=== PATIENT | male | born 1930 | race Caucasian/White ===

== ENCOUNTER 2017-09-08 12:45 | Inpatient (IN) ==
[2017-09-08 13:19] LABS: Basophils % 0.3 %; Eosinophils # 0.2 K/mcL (0.0-0.6); Hemoglobin 13.1 g/dL (12.9-16.9); Immature Granulocytes % 0.6 % (0-4); Lymphocytes # 1.1 K/mcL (0.6-4.6); Lymphocytes % 10.1 %; Mean Corpuscular Hemoglobin 28.6 pg (28.0-33.3); Mean Corpuscular Volume 89.5 fL (83.0-100.0); Mean Platelet Volume 9.6 fL (9.4-12.4); Monocytes # 0.5 K/mcL (0.0-1.3); Monocytes % 4.7 %; Neutrophils # 8.6 K/mcL (1.6-8.9); Platelet Count 287 K/mcL (140-400); Red Blood Count 4.58 M/mcL (4.19-5.50); Red Cell Distribution Width 14.7 % (11.5-14.5); Segmented Neutrophils % 82.3 %
[2017-09-08 13:35] LABS: Prothrombin Time 11.2 Seconds (9.4-12.1)
--- NOTE | 2017-09-08 13:39 | Emergency Department Note ---
Disposition Clinical Impression: Syncope Qualifiers: Syncope type: unspecified Qualified Code(s): R55 - Syncope and collapse Chest pain Qualifiers: Chest pain type: unspecified Qualified Code(s): R07.9 - Chest pain, unspecified Disposition: Admitted As Inpatient Time of Disposition: 14:52 General Adult HPI - General Chief complaint: ED Chest Pain Stated complaint: CHEST PAIN/SYNCOPE Time Seen by Provider: 09/08/17 12:53 Source: patient Limitations: no limitations Nursing Notes Reviewed: Yes Vital Signs Reviewed: Yes - History of Present Illness HPI Narrative: Patient was burning trash today whenever he got short of breath. He is insistent he was not in the smoke area. States he went to sit down and start taking deep breaths is is generally gets rid of his chest pain. He states he has chest pain associated with aortic stenosis frequently. He states the pain was different however. States that he had a syncopal over he slumped over while sitting. He denies any head pain or trauma. He states this chest pain was gone after he woke up. Pain Scale: 5 - Related Data Home Medications Medication Instructions Recorded Confirmed Amlodipine Besylate [Amlodipine 5 mg PO QPM 09/08/17 09/08/17 Besylate] Aspirin 81 mg PO DAILY 09/08/17 09/08/17 Calcium Carbonate [Calcium] 500 mg PO DAILY 09/08/17 09/08/17 Cholecalciferol (Vitamin D3) 1,000 unit PO DAILY 09/08/17 09/08/17 [Vitamin D] Dutasteride [Dutasteride] 0.5 mg PO DAILY 09/08/17 09/08/17 Etanercept [Enbrel] 50 mg IJ Q10D 09/08/17 09/08/17 Furosemide [Lasix] 20 mg PO DAILY 09/08/17 09/08/17 Ibuprofen [Advil] 200 mg PO Q6H PRN 09/08/17 09/08/17 Lactobacillus Acidophilus 1 mg PO DAILY 09/08/17 09/08/17 [Acidophilus Probiotic] Mv-Mn/FA/Vit K/Lycop/Lut/Coq10 1 tab PO DAILY 09/08/17 09/08/17 [Daily Multivitamin Capsule] Potassium Chloride [Klor-Con 10 meq PO DAILY 09/08/17 09/08/17 Sprinkle] Valsartan/Hydrochlorothiazide 1 tab PO DAILY 09/08/17 09/08/17 [Diovan Hct 160-25 mg Tablet] Allergies Allergy/AdvReac Type Severity Reaction Status Date / Time nitroglycerin Allergy PASSES OUT Verified 09/08/17 14:26 All systems ED: reviewed and negative except as stated. Constitutional: Denies: fever, chills ENT ED: Denies: congestion Cardiovascular: Reports: chest pain (Prior to syncope. Not at this time), syncope (After the chest pain.). Denies: palpitations Respiratory: Reports: dyspnea (Not at this time.). Denies: cough Gastrointestinal: Denies: abdominal pain, nausea Genitourinary: Denies: urgency, dysuria, frequency Musculoskeletal: Denies: back pain, neck pain Integumentary: Denies: rash Neurological: Denies: headache, weakness Past Medical History - Past Medical History Medical history: Reports: other Psychiatric history: Reports: no psych history - Social History Smoking Status: Never smoker Smokeless Tobacco Status: No Physical Exam - General Limitations: no limitations General appearance: alert, in no apparent distress - Head Head exam: atraumatic, normocephalic, normal inspection - Eye Eye exam: Present: normal appearance, PERRL, EOMI - ENT ENT exam: normal exam, normal oropharynx, mucous membranes moist - Neck Neck exam: Present: normal inspection, full ROM, trachea midline - Chest Chest inspection: Present: normal inspection, symmetric chest wall rise - Respiratory Respiratory exam: Present: normal lung sounds bilaterally. Absent: respiratory distress, accessory muscle use - Cardiovascular Cardiovascular exam: Present: regular rate, normal rhythm, normal heart sounds - Abdominal Exam Abdominal exam: Present: soft, Non-Tender. Absent: organomegaly - Extremities Exam Extremities exam: Present: normal inspection, full ROM, normal capillary refill. Absent: tenderness, pedal edema - Back Exam Back exam: Present: normal inspection, other (No midline cervical tenderness) - Neurological Exam Neurological exam: Present: alert, oriented X3, CN II-XII intact, other ( Mentating appropriately.) - Psychiatric Psychiatric exam: Present: normal affect, normal mood - Skin Skin exam: Present: warm, dry, intact, normal color. Absent: rash Course Course Narrative: Male patient presenting to the emergency department with a complaint of syncope earlier today. He was burning some trash outside when he started getting short of breath. States that he sat down. Generally gets chest pain and is able to deep breathe to make it go away. He reports that this is due to his aortic stenosis. States it with deep breathing this did not help with the pain. States that he sat down on a bench and when he woke up he was still sitting on the bench. No history of syncope previously. Patient states he did not strike his head. He denies any neck pain. I do not appreciate any trauma to his head. His pupils are equal and reactive to light. He is neurologically intact. He denies any chest pain at this time. He denies any shortness of breath. He is mentating appropriately. Patient's EKG showed no signs of acute ischemia. Patient had a negative troponin. We also got a CT of patient's head which showed some mild atrophy but no bleeding. Patient's chest pain and then syncope we will admit to the hospital for further cardiac workup. Patient reports no history of VT previously. - Consultations Consultation #1: Pt accepeted by Dr Jalloh in stable condition. Time: 14:45 Vital Signs Temperature 97.9 F 09/08/17 12:56 Pulse Rate 88 09/08/17 12:56 Respiratory Rate 16 09/08/17 12:56 Blood Pressure 174/77 09/08/17 12:56 O2 Sat by Pulse Oximetry 97 09/08/17 12:56 Temperature 97.9 F 09/08/17 12:56 Pulse Rate 81 09/08/17 14:49 Respiratory Rate 18 09/08/17 14:49 Blood Pressure 150/77 09/08/17 14:49 O2 Sat by Pulse Oximetry 96 09/08/17 14:49 Oxygen Delivery Oxygen Delivery Room Air Medical Decision Making - Medical Records Medical records reviewed: Yes I reviewed the patient's medical records. - Lab Data Lab results reviewed: Yes I reviewed the patient's lab results. Result diagrams: 09/08/17 13:08 09/08/17 13:08 Lab Results 09/08/17 09/08/17 09/08/17 Range/Units 13:08 13:08 13:08 WBC 10.4 (4.3-11.1) K/mcL RBC 4.58 (4.19-5.50) M/mcL Hgb 13.1 (12.9-16.9) g/dL Hct 41.0 (37.5-50.1) % MCV 89.5 (83.0-100.0) fL MCH 28.6 (28.0-33.3) pg MCHC 32.0 (31.6-35.5) g/dL RDW 14.7 H (11.5-14.5) % Plt Count 287 (140-400) K/mcL MPV 9.6 (9.4-12.4) fL Immature Gran % 0.6 (0-4) % Seg Neutrophils % 82.3 % Lymphocytes % 10.1 % Monocytes % 4.7 % Eosinophils % 2.0 % Basophils % 0.3 % Neutrophils # 8.6 (1.6-8.9) K/mcL Lymphocytes # 1.1 (0.6-4.6) K/mcL Monocytes # 0.5 (0.0-1.3) K/mcL Eosinophils # 0.2 (0.0-0.6) K/mcL Basophils # 0.0 (0.0-0.2) K/mcL PT 11.2 (9.4-12.1) Seconds INR 1.0 Sodium 137 (136-145) mEq/L Potassium 4.3 (3.5-5.1) mEq/L Chloride 100 (98-107) mEq/L Carbon Dioxide 30 H (23-29) mEq/L BUN 26 H (8-23) mg/dL Creatinine 0.93 (0.70-1.30) mg/dL Est GFR ( Amer) > 60 (> 60) Est GFR (Non-Af Amer) > 60 (> 60) BUN/Creatinine Ratio 28 H (6-26) Glucose 166 H (70-105) mg/dL Calculated Osmolality 293 (280-300) Calcium 8.9 (8.6-10.3) mg/dL Troponin I < 0.03 (< 0.04) ng/mL - Radiology Data Radiology results reviewed: Yes I reviewed the patient's radiology results. Chest X-Ray 09/08/17 12:54 IMPRESSION: Low lung volumes and pulmonary vascular congestion without overt edema. D/ / 09/08/2017 14:01:53 Raul Galindo MD / rehan Interpreting Provider: Raul Galindo MD Head CT 09/08/17 13:22 IMPRESSION: 1. No acute intracranial abnormality. 2. Mild age-appropriate diffuse atrophy with mild chronic small vessel ischemic changes. D/ / Josue Jordan MD / Josue Jordan MD Interpreting Provider: Josue Jordan MD - EKG Data EKG #1 EKG attestation: Yes I reviewed and interpreted this EKG. EKG results narrative: Normal sinus rhythm at a rate 82. PA interval is 158. QRS duration is 105. QT is 362. QTC is 401. No signs of acute ischemia. No previous to compare to.
[2017-09-08 13:42] LABS: BUN/Creatinine Ratio 28 (6-26); Blood Urea Nitrogen 26 mg/dL (8-23); Calcium 8.9 mg/dL (8.6-10.3); Carbon Dioxide 30 mEq/L (23-29); Chloride 100 mEq/L (98-107); Glucose 166 mg/dL (70-105); Osmolality,Calculated 293 (280-300); Potassium 4.3 mEq/L (3.5-5.1); Sodium 137 mEq/L (136-145); Troponin I < 0.03 ng/mL (< 0.04); eGFR For African Americans > 60 (> 60); eGFR For Non-African Americans > 60 (> 60)
--- NOTE | 2017-09-08 13:42 | Emergency Department Note ---
Disposition Clinical Impression: Syncope Qualifiers: Syncope type: unspecified Qualified Code(s): R55 - Syncope and collapse Disposition: Still a Patient Forms: ED Satisfaction Letter General Adult HPI - General Chief complaint: ED Chest Pain Stated complaint: CHEST PAIN/SYNCOPE Time Seen by Provider: 09/08/17 12:53 Source: patient Limitations: no limitations - History of Present Illness Pain Scale: 5 Past Medical History - Past Medical History Medical history: Reports: other Psychiatric history: Reports: no psych history - Social History Smoking Status: Never smoker Smokeless Tobacco Status: No Physical Exam - General Limitations: no limitations General appearance: alert, in no apparent distress Course - Reevaluation(s) Reevaluation #1: Attestation note I examined this patient and my medical decision-making was reviewed with the emergency medicine resident. I agree with the documented findings, disposition and treatment plan as described except to the extent set forth below. Patient seen with emergency medicine resident Dr. Kathleen Tinoco, Please see a copy of his note for details of the H&P, ED evaluation, management and disposition. I have independently evaluated the patient and confirmed appropriate portions of the history and physical exam. Briefly: 86-year-old male comes in with a history of chest discomfort and syncope but was sitting position. No prior history of syncope. Patient is awake and alert neurologically nonfocal patient had an EKG noncontrast head CT troponin chest x-ray. Admission anticipated. Disposition pending Time: 13:38 Vital Signs Temperature 97.9 F 09/08/17 12:56 Pulse Rate 88 09/08/17 12:56 Respiratory Rate 16 09/08/17 12:56 Blood Pressure 174/77 09/08/17 12:56 O2 Sat by Pulse Oximetry 97 09/08/17 12:56 Temperature 97.9 F 09/08/17 12:56 Pulse Rate 88 09/08/17 12:56 Respiratory Rate 16 09/08/17 12:56 Blood Pressure 174/77 09/08/17 12:56 O2 Sat by Pulse Oximetry 97 09/08/17 12:56 Oxygen Delivery Oxygen Delivery Room Air Medical Decision Making - Lab Data Result diagrams: 09/08/17 13:08 Lab Results 09/08/17 09/08/17 Range/Units 13:08 13:08 WBC 10.4 (4.3-11.1) K/mcL RBC 4.58 (4.19-5.50) M/mcL Hgb 13.1 (12.9-16.9) g/dL Hct 41.0 (37.5-50.1) % MCV 89.5 (83.0-100.0) fL MCH 28.6 (28.0-33.3) pg MCHC 32.0 (31.6-35.5) g/dL RDW 14.7 H (11.5-14.5) % Plt Count 287 (140-400) K/mcL MPV 9.6 (9.4-12.4) fL Immature Gran % 0.6 (0-4) % Seg Neutrophils % 82.3 % Lymphocytes % 10.1 % Monocytes % 4.7 % Eosinophils % 2.0 % Basophils % 0.3 % Neutrophils # 8.6 (1.6-8.9) K/mcL Lymphocytes # 1.1 (0.6-4.6) K/mcL Monocytes # 0.5 (0.0-1.3) K/mcL Eosinophils # 0.2 (0.0-0.6) K/mcL Basophils # 0.0 (0.0-0.2) K/mcL PT 11.2 (9.4-12.1) Seconds INR 1.0
--- NOTE | 2017-09-08 17:20 | Electrocardiograph Report ---
[facility] Test Date: 2017-09-08 Pat Name: Hank Taylor Department: 103 Room: 3B31 Gender: M Candy Attendant: [facility] : 1930 Requested By: Gary Jacob Order Number: [id number] Reading MD: Sergio Deleon Measurements Intervals Anderson Rate: 82 P: 51 TN: 158 QRS: 32 QRSD: 105 T: 69 QT: 362 QTc: 401 Interpretive Statements SINUS RHYTHM POSSIBLE INFERIOR MYOCARDIAL INFARCTION [30 ms Q WAVE IN II/aVF], PROBABLY OLD Electronically Signed On 09-08-2017 17:19:14 EDT by Sergio Deleon
[2017-09-08] MEDS ORDERED: Ibuprofen 200 MG TABLET PO PRN (20:50)
[2017-09-08] MEDS ORDERED: Acetaminophen 325 MG TABLET PO PRN (20:51)
[2017-09-08] MEDS ORDERED: Naloxone 0.4 MG/ML INJ IVP PRN (20:51)
[2017-09-08] MEDS ORDERED: *HR* HYDROcodone/Acet 5/325 mg TABLET PO PRN (20:51)
[2017-09-08] MEDS ORDERED: Etanercept [Enbrel] 50 MG SQ SCH (21:00)
--- NOTE | 2017-09-08 21:00 | Internal Med History&Physical ---
Date of Encounter: 09/08/17 Time of Encounter: 18:17 Internal Medicine - H&P: HPI Chief complaint: "Pain in chest and passed out" Admitted From: Emergency Dept Plans for Post Hospital Care: Home History of present illness: Mr. Taylor is a 86 year old white male with PMH of HTN and aortic stenosis who presented to ED with 1-day history of chest pain and syncopal episode. He states that he was "burning trash" earlier today when he started to have chest pain and SOB. Moments later, he "blacked out." No one was with him. He does not remember how long he was passed out. He denies inhaling any smoke. He states that he has a history of aortic stenosis, and intermittent episodes of chest pain are not new to him. This pain was different in nature. Chest pain resolved after syncopal episode, and he has had no further episodes since then. In the ED, EKG showed no signs of acute ischemia. Initial troponin was WNL. CT head showed some mild atrophy, but no acute abnormalities. He states that last cardiac workup was more than 1 year ago. He is in the process of getting in to see a new flatwork feeder to follow for his aortic stenosis. He denies any history of CAD/CA. He has no complaints at the time of my interview. Past Med Surg Social Fam HX - Past Medical History Attestation: Yes The following information was validated with the patient. Source: patient Medical history: hypertension, other (Aortic Stenosis, Rheumatoid Arthritis) Psychiatric history: no psych history - Past Surgical History Surgical History: hip replacement - Social History Smoking Status: Never smoker Smokeless Tobacco Status: No Alcohol use: none Drug use: none - Additional Family History Additional family history: No significant family history per patient. Internal Medicine - H&P: Meds Amlodipine Besylate [Amlodipine Besylate] 5 mg PO QPM 09/08/17 [History] Aspirin 81 mg PO DAILY 09/08/17 [History] Calcium Carbonate [Calcium] 500 mg PO DAILY 09/08/17 [History] Cholecalciferol (Vitamin D3) [Vitamin D] 1,000 unit PO DAILY 09/08/17 [History] Dutasteride [Dutasteride] 0.5 mg PO DAILY 09/08/17 [History] Etanercept [Enbrel] 50 mg IJ Q10D 09/08/17 [History] Furosemide [Lasix] 20 mg PO DAILY 09/08/17 [History] Ibuprofen [Advil] 200 mg PO Q6H PRN 09/08/17 [History] Lactobacillus Acidophilus [Acidophilus Probiotic] 1 mg PO DAILY 09/08/17 [ History] Mv-Mn/FA/Vit K/Lycop/Lut/Coq10 [Daily Multivitamin Capsule] 1 tab PO DAILY 09/08 [History] Potassium Chloride [Klor-Con Sprinkle] 10 meq PO DAILY 09/08/17 [History] Valsartan/Hydrochlorothiazide [Diovan Hct 160-25 mg Tablet] 1 tab PO DAILY 09/08 [History] 3 Allergy/AdvReac Type Severity Reaction Status Date / Time nitroglycerin Allergy PASSES OUT Verified 09/08/17 14:26 - Constitutional Constitutional: no anorexia, no chills, no fatigue, no fever(s), no lethargy, no malaise, no weakness, no weight gain, no weight loss - EENT Eyes: no blurry vision, no diplopia, no loss of vision, no pain Ears: no decreased hearing, no ear pain Nose, mouth and throat: no dry mouth, no dysphagia, no facial pain, no mouth lesions, no mouth pain, no nasal congestion, no nasal discharge, no sinus pain, no sore throat - Cardiovascular Cardiovascular ROS IM: chest pain, dyspnea, syncope, no diaphoresis, no dyspnea on exertion, no edema, no palpitations - Respiratory Respiratory: dyspnea, no cough, no hemoptysis, no wheezing, no chest congestion - Gastrointestinal Gastrointestinal: no abdominal pain, no change in bowel habits, no constipation , no diarrhea, no dysphagia, no heartburn, no hematemesis, no hematochezia, no melena, no nausea, no vomiting - Genitourinary Genitourinary ROS male: no difficulty urinating, no dysuria, no hematuria, no urinary frequency - Musculoskeletal Musculoskeletal ROS IM: no arthralgias, no muscle cramps, no muscle weakness, no myalgias, no stiffness - Integumentary Integumentary IM: no erythema, no rash, no skin ulcer, no jaundice - Neurological Neurological ROS: no abnormal gait, no abnormal speech, no behavioral changes, no confusion, no dizziness, no focal weakness, no headache(s), no vertigo, no weakness - Psychiatric Psychiatric: no anxiety, no behavioral changes, no confusion, no depression - Endocrine Endocrine IM: no cold intolerance, no fatigue, no heat intolerance, no polydipsia, no polyphagia, no polyuria - Constitutional Vitals: Temp Pulse Resp BP Pulse Ox 97.9 F 72 14 169/76 97 09/08/17 18:32 09/08/17 18:32 09/08/17 18:32 09/08/17 18:32 09/08/17 18:32 General appearance: Present: cooperative, A&O X 3, pleasant, no acute distress, answers questions appropriately - Head Head exam: Present: atraumatic, normocephalic - Eye Eye exam: Present: EOMI, PERRL. Absent: conjunctival injection, nystagmus, scleral icterus - ENT ENT exam: Present: mucous membranes moist, normal external ear exam, normal oropharynx - Neck Neck exam general surgery: Present: supple, trachea midline. Absent: lymphadenopathy, tenderness, thyromegaly - Respiratory Respiratory exam: Present: CTAB. Absent: accessory muscle use, rales, rhonchi, wheezes Additional comments: Normal WOB - Cardiovascular Cardiovascular exam: Present: RRR, +S1, +S2, systolic murmur. Absent: diastolic murmur, gallop, rubs Additional comments: No BLE edema - GI/Abdominal GI/Abdominal exam: Present: normal bowel sounds, soft. Absent: distended, hepatomegaly, mass, splenomegaly, tenderness - Neurological Exam Neurological exam: Present: alert, CN II-XII intact, oriented X3, no focal deficits, strengths equal and symetr throughout. Absent: facial droop, speech deficit - Psychiatric Psychiatric exam: Present: normal affect, normal mood. Absent: anxious, depressed - Skin Skin exam: Present: dry, intact, warm. Absent: cyanosis, rash Internal Med - H&P Results - Labs CBC & Chem 7: 09/09/17 03:10 09/09/17 03:10 - Assessment and plan (1) Chest pain Current Visit: Yes Status: Acute Assessment and plan: Admit for observation for ACS ruleout. Start telemetry. Start supplemental O2 PRN. Start SL nitro PRN. Start tylenol and norco PRN pain. Continue aspirin. Trend troponin x 3. Obtain ECHO. Obtain repeat EKG in AM. Continue home medications for HTN. Repeat labwork, including lipid panel, in AM. Qualifiers: Chest pain type: other chest pain Qualified Code(s): R07.89 - Other chest pain; R07.8 - Other chest pain (2) Syncope Current Visit: Yes Status: Acute Assessment and plan: Possibly secondary to aortic stenosis. Repeat ECHO as per above. Obtain bilateral carotid duplex. ACS ruleout as per above. Repeat labwork in AM. Qualifiers: Syncope type: unspecified Qualified Code(s): R55 - Syncope and collapse (3) Aortic stenosis Current Visit: Yes Status: Chronic Assessment and plan: Obtain ECHO as per above. 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 Qualifiers: Hypertension type: essential hypertension Qualified Code(s): I10 - Essential (primary) hypertension (5) DVT prophylaxis Current Visit: Yes Status: Acute Assessment and plan: Start lovenox 40 mg SQ QD. - Time Spent With Patient Total time spent is greater than 50% in coordination of care (as documented) at patient's floor/unit and/or counseling patient: 25 - 35 minutes
[2017-09-08] MEDS: amLODIPine 5 MG TABLET PO SCH (21:31)
[2017-09-08] MEDS: Aspirin 81 MG TAB.CHEW PO SCH (21:32)
[2017-09-08] MEDS: Furosemide 20 MG TABLET PO SCH (21:36)
[2017-09-08] MEDS: Cholecalciferol (D-3) 1,000 UNIT TABLET PO SCH (21:37)
[2017-09-08] MEDS: Multivit/Ca/Min/Fe/FA 1 TAB TABLET PO SCH (21:37)
[2017-09-08] MEDS: Lactobacillus 1 EACH CAP.SPRINK PO SCH (21:37)
[2017-09-08] MEDS: Finasteride 5 MG TABLET PO SCH (21:37)
[2017-09-08] MEDS: hydroCHLOROthiazide 25 MG TABLET PO SCH (22:35)
[2017-09-08] MEDS: Valsartan 160 MG TABLET PO SCH (22:35)
[2017-09-09 03:26] LABS: Basophils % 0.4 %; Eosinophils # 0.6 K/mcL (0.0-0.6); Eosinophils % 7.6 %; Hematocrit 38.9 % (37.5-50.1); Immature Granulocytes % 0.3 % (0-4); Lymphocytes # 1.9 K/mcL (0.6-4.6); Lymphocytes % 26.1 %; Mean Corpuscular HGB Conc 33.4 g/dL (31.6-35.5); Mean Corpuscular Volume 86.8 fL (83.0-100.0); Mean Platelet Volume 9.6 fL (9.4-12.4); Monocytes # 0.5 K/mcL (0.0-1.3); Monocytes % 6.9 %; Neutrophils # 4.3 K/mcL (1.6-8.9); Platelet Count 258 K/mcL (140-400); Red Blood Count 4.48 M/mcL (4.19-5.50); Red Cell Distribution Width 14.6 % (11.5-14.5); Segmented Neutrophils % 58.7 %
[2017-09-09 03:46] LABS: BUN/Creatinine Ratio 30 (6-26); Blood Urea Nitrogen 23 mg/dL (8-23); Calcium 8.7 mg/dL (8.6-10.3); Carbon Dioxide 31 mEq/L (23-29); Chloride 102 mEq/L (98-107); Chol/HDL Ratio 2.3 (0-4.9); Cholesterol 178 mg/dL (< 200); Glucose 99 mg/dL (70-105); HDL Cholesterol 77 mg/dL (40-59); LDL Cholesterol,Calculated 89 mg/dL (0-99); Osmolality,Calculated 290 (280-300); Potassium 3.4 mEq/L (3.5-5.1); Sodium 138 mEq/L (136-145); Triglycerides 61 mg/dL (< 150); eGFR For African Americans > 60 (> 60); eGFR For Non-African Americans > 60 (> 60)
[2017-09-09] MEDS: Multivit/Ca/Min/Fe/FA 1 TAB TABLET PO SCH (08:30)
[2017-09-09] MEDS: Furosemide 20 MG TABLET PO SCH (08:30)
[2017-09-09] MEDS: Aspirin 81 MG TAB.CHEW PO SCH (08:30)
[2017-09-09] MEDS: Lactobacillus 1 EACH CAP.SPRINK PO SCH (08:30)
[2017-09-09] MEDS: Finasteride 5 MG TABLET PO SCH (08:30)
[2017-09-09] MEDS: Cholecalciferol (D-3) 1,000 UNIT TABLET PO SCH (08:30)
[2017-09-09] MEDS ORDERED: hydroCHLOROthiazide 25 MG TABLET PO SCH (09:00)
[2017-09-09] MEDS ORDERED: Valsartan 160 MG TABLET PO SCH (09:00)
--- NOTE | 2017-09-09 15:06 | Internal Med Progress Note ---
Date of Encounter: 09/09/17 Time of Encounter: 15:06 - Assessment and plan (1) Aortic stenosis Current Visit: Yes Status: Chronic Assessment and plan: has known aortic stenosis. 09/09/17 TTE with moderate to severely calcified aortic valve leaflets, the number of leaflets cannot be determined and moderate aortic stenosis. Concerned that syncopal episode could be related to aortic stenosis. Continue to monitor on telemetry. 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 Details unclear as episode was not witnessed. With aortic stenosis as noted above. Bilateral carotid Dopplers with essentially normal carotids. Continue to monitor on telemetry. Cardiology consulted Qualifiers: Syncope type: unspecified Qualified Code(s): R55 - Syncope and collapse (3) Chest pain Current Visit: Yes Status: Acute Assessment and plan: No known CAD. Presented after a syncopal episode with associated chest pain. Serial troponins negative. EKG without acute ST changes. He may need L HC for further evaluation of aortic stenosis. Cardiology consulted. Cont ASA Qualifiers: Chest pain type: other chest pain Qualified Code(s): R07.89 - Other chest pain; R07.8 - Other chest pain (4) HTN (hypertension) Current Visit: Yes Status: Chronic Assessment and plan: per hx. BP elevated, placed secondary to stress/anxiety. Continue home BP medication. Avoid severe/sudden drop in BP with severe aortic stenosis. Monitor BP and titrate PRN Qualifiers: Hypertension type: essential hypertension Qualified Code(s): I10 - Essential (primary) hypertension (5) DVT prophylaxis Current Visit: Yes Status: Acute Assessment and plan: lovenox - Time Spent With Patient Total time spent is greater than 50% in coordination of care (as documented) at patient's floor/unit and/or counseling patient: - Constitutional Vitals: Temp Pulse Resp BP Pulse Ox 97.8 F 76 16 175/79 98 09/09/17 10:55 09/09/17 10:55 09/09/17 10:55 09/09/17 10:55 09/09/17 10:55 General appearance: Present: cooperative, A&O X 3, pleasant, no acute distress, answers questions appropriately - Head Head exam: Present: atraumatic, normocephalic - Eye Eye exam: Present: PERRL, conjuntiva pink, sclera anicteric Pupils: Present: PERRL - Neck Neck exam general surgery: Present: supple, trachea midline. Absent: lymphadenopathy - Respiratory Respiratory exam: Present: CTAB. Absent: accessory muscle use, rales, rhonchi, wheezes - Cardiovascular Cardiovascular exam: Present: RRR, +S1, +S2, systolic murmur. Absent: diastolic murmur, gallop, rubs - GI/Abdominal GI/Abdominal exam: Present: normal bowel sounds, soft, no peritoneal signs. Absent: distended, tenderness - Extremities Exam Extremities exam: Present: warm, radial pulses palpable and symmetrical. Absent : calf tenderness, cyanotic, pedal edema - Neurological Exam Neurological exam: Present: CN II-XII intact, oriented X3, no focal deficits. Absent: pronater drift, facial droop, speech deficit - Skin Skin exam: Present: dry, intact Internal Medicine: Result - Labs CBC & Chem 7: 09/09/17 03:10 09/09/17 03:10 Labs: Short CBC 09/09/17 Range/Units 03:10 WBC 7.3 (4.3-11.1) K/mcL Hgb 13.0 (12.9-16.9) g/dL Hct 38.9 (37.5-50.1) % Plt Count 258 (140-400) K/mcL Neutrophils # 4.3 (1.6-8.9) K/mcL BMP 09/09/17 03:10 Sodium 138 Potassium 3.4 L Chloride 102 Carbon Dioxide 31 H BUN 23 Creatinine 0.76 Glucose 99 Calcium 8.7 Cardiac Enzymes 09/08/17 09/09/17 09/09/17 Range/Units 21:21 03:10 08:26 Troponin I < 0.03 < 0.03 < 0.03 (< 0.04) ng/mL - ABG Interpretation ABG results: PT/INR, D-dimer PT 11.2 Seconds (9.4-12.1) 09/08/17 13:08 - Impressions Impressions Echocardiogram Limited Views 09/09/17 09:00 Impressions: LVEF 60-65%. Normal LV chamber size and function. Moderate to severely calcified aortic valve leaflets. The number of leaflets cannot be determined. Trace aortic regurgitation. Moderate aortic stenosis. Mean gradient 22 mmHg. Peak velocity 3.2 m/s. Left Ventricular Wall Motion: Rest Echo Findings All wall segments showed normal motion. Findings: Study Quality * Technically adequate exam. ECG Findings * Normal sinus rhythm. Left Ventricle * LVEF 60-65%. * Normal LV chamber size and function. Right Ventricle * Normal right ventricular structure and function. Aortic Valve * Moderate to severely calcified aortic valve leaflets. The number of leaflets cannot be determined. * Trace aortic regurgitation. * Moderate aortic stenosis. Mean gradient 22 mmHg. Peak velocity 3.2 m/s. Mitral Valve * Mild mitral annular calcification. * Trace mitral regurgitation in the limited views obtained. Aorta * Normally sized aortic root. Pericardium * There is a trivial inferolateral pericardial effusion present. Consult Discharge Plan - Plan Referrals: Yao Ruiz MD [Primary Care Provider] -
[2017-09-09] MEDS: amLODIPine 5 MG TABLET PO SCH (17:53)
[2017-09-09] MEDS: hydroCHLOROthiazide 25 MG TABLET PO SCH (20:18)
[2017-09-09] MEDS: Valsartan 160 MG TABLET PO SCH (20:19)
[2017-09-10] MEDS: Lactobacillus 1 EACH CAP.SPRINK PO SCH (07:42)
[2017-09-10] MEDS: hydroCHLOROthiazide 25 MG TABLET PO SCH (07:42)
[2017-09-10] MEDS: Multivit/Ca/Min/Fe/FA 1 TAB TABLET PO SCH (07:42)
[2017-09-10] MEDS: Furosemide 20 MG TABLET PO SCH (07:43)
[2017-09-10] MEDS: Cholecalciferol (D-3) 1,000 UNIT TABLET PO SCH (07:43)
[2017-09-10] MEDS: Valsartan 160 MG TABLET PO SCH (07:43)
[2017-09-10] MEDS: Aspirin 81 MG TAB.CHEW PO SCH (07:43)
[2017-09-10] MEDS: Finasteride 5 MG TABLET PO SCH (07:43)
--- NOTE | 2017-09-10 10:40 | Cardiology Consult Note ---
Date of Encounter: 09/10/17 Time of Encounter: 09:30 Assessment and Plan (1) Aortic stenosis Current Visit: Yes Status: Chronic H/o moderate aortic stenosis (). TTE completed at [facility] 09/2016 showed moderate left atrial enlargemant. Moderate LVH. Moderate . TTE completed this admission reviwed with Dr. Marin-LVEF 60-65%. Normal LV chamber size and function. Moderate to severely calcified aortic valve leaflets. The number of leaflets cannot be determined. Trace aortic regurgitation.Moderate aortic stenosis. Mean gradient 22 mmHg. Peak velocity 3.2 m/s. Discussed with Dr. Marin, patient with ongoing symptoms of chest pain. Recommends [facility] for further ischemic evaluation and work -up of aortic stenosis. 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 TTE reviewed as above. is moderate. EF normal. Telemetry review shows NSR, avg HR 72 bpm. No VT, bradycardia, or pauses. Recommend [facility] for ongoing chest pain and aortic stenosis. Qualifiers: Syncope type: unspecified Qualified Code(s): R55 - Syncope and collapse (3) Chest pain Current Visit: Yes Status: Acute Troponin negative. TTE shows normal LV function. EKG shows NSR with no st changes. Reports multiple stress test in past that were negative. [facility] recommended for ongoing chest pain concerning for unstable angina and further evaluation of aortic valve. Qualifiers: Chest pain type: other chest pain Qualified Code(s): R07.89 - Other chest pain; R07.8 - Other chest pain Discussion w patient/family: The assessment and plan as outlined above was discussed with the patient and/or family members who expressed understanding and agreement. All questions were answered. Thank you for involving us in the care of your patient. Please call with any questions. History of Present Illness Consult date: 09/10/17 Requesting physician: Charity Mcdonnell Consult reason: SYncope, aortic stenosis Chief complaint: Chest pain, Syncope History of present illness: Mr. Taylor is a 86 year old male with past medical history of moderate aortic stenosis, HTN, HLD. He presents from home after syncopal event. Reports he was burning trash and sitting on a wood pile when he developed sudden severe chest pain and loss consiousness. He woke up laying back on the wood pile. When he woke he did not have chest pain or SOB. No vision changes, no incontinence. He felt back to his normal self. States that the incident was only several seconds long. He denies symptoms leading to the event. Denies recent chest pain or SOB. Reports syncopal event several years ago when he was found to have hypotension. Previous TTE showed moderate aortic stenosis. Past Med Surg Social Fam HX - Past Medical History Medical history: hypertension, valvular heart disease, other (Aortic Stenosis, Rheumatoid Arthritis) Psychiatric history: no psych history - Past Surgical History Surgical History: hip replacement - Social History Smoking Status: Never smoker Smokeless Tobacco Status: No Alcohol use: none Drug use: none Medications and Allergies Amlodipine Besylate [Amlodipine Besylate] 5 mg PO QPM 09/08/17 [History] Aspirin 81 mg PO DAILY 09/08/17 [History] Calcium Carbonate [Calcium] 500 mg PO DAILY 09/08/17 [History] Cholecalciferol (Vitamin D3) [Vitamin D] 1,000 unit PO DAILY 09/08/17 [History] Dutasteride [Dutasteride] 0.5 mg PO DAILY 09/08/17 [History] Etanercept [Enbrel] 50 mg IJ Q10D 09/08/17 [History] Furosemide [Lasix] 20 mg PO DAILY 09/08/17 [History] Ibuprofen [Advil] 200 mg PO Q6H PRN 09/08/17 [History] Lactobacillus Acidophilus [Acidophilus Probiotic] 1 mg PO DAILY 09/08/17 [ History] Mv-Mn/FA/Vit K/Lycop/Lut/Coq10 [Daily Multivitamin Capsule] 1 tab PO DAILY 09/08 [History] Potassium Chloride [Klor-Con Sprinkle] 10 meq PO DAILY 09/08/17 [History] Valsartan/Hydrochlorothiazide [Diovan Hct 160-25 mg Tablet] 1 tab PO DAILY 09/08 [History] 3 Allergy/AdvReac Type Severity Reaction Status Date / Time nitroglycerin Allergy PASSES OUT Verified 09/08/17 14:26 All Systems Review: The remainder of the systems were reviewed and are negative Physical Examination Vital Signs, Last 4 Hours Temp Pulse Resp BP Pulse Ox 09/10/17 10:00 86 136/71 04/22/18 07:06 99.2 F 74 14 170/85 94 General: Conversant, No Apparent Distress HEENT: Atraumatic, Normocephaly, Mucus Membranes Moist Neck: No JVD, Normal carotid pulses Cardiac: Reg Rate and Rhythm, Normal S1 and S2, Other (2/6 systolic murmur at RSB) Lungs: Normal Breath Sounds, No Wheeze, Rales, Rhonchi Neuro: Alert and responsive, No focal deficits noted Abdomen: Soft, Non-Tender Skin: No rashes noted on visualized skin Musculoskeletal: No Chest Wall Tenderness Extremities: No Clubbing, No Cyanosis, No Edema, Normal Pulses Results 09/09/17 03:10 09/09/17 03:10 Chest X-Ray 09/08/17 12:54 IMPRESSION: Low lung volumes and pulmonary vascular congestion without overt edema. D/ / 09/08/2017 14:01:53 Raul Galindo MD / rehan Interpreting Provider: Raul Galindo MD Head CT 09/08/17 13:22 IMPRESSION: 1. No acute intracranial abnormality. 2. Mild age-appropriate diffuse atrophy with mild chronic small vessel ischemic changes. D/ / Josue Jordan MD / Josue Jordan MD Interpreting Provider: Josue Jordan MD Echocardiogram Limited Views 09/09/17 09:00 Impressions: LVEF 60-65%. Normal LV chamber size and function. Moderate to severely calcified aortic valve leaflets. The number of leaflets cannot be determined. Trace aortic regurgitation. Moderate aortic stenosis. Mean gradient 22 mmHg. Peak velocity 3.2 m/s. - Imaging and Cardiology Echo: report reviewed - EKG Interpretation EKG results cardiology: personally reviewed Consult Discharge Plan - Plan Referrals: Yao Ruiz MD [Primary Care Provider] -
--- NOTE | 2017-09-10 15:29 | Internal Med Progress Note ---
Date of Encounter: 09/10/17 Time of Encounter: 15:26 - Assessment and plan (1) Aortic stenosis Current Visit: Yes Status: Chronic Assessment and plan: has known aortic stenosis. 09/09/17 TTE with moderate to severely calcified aortic valve leaflets (number of leaflets cannot be determined) and moderate aortic stenosis. Concerned that syncopal episode could be related to aortic stenosis. Evaluated by cardiology who is recommending [facility] for further characterization of stenosis severity. NPO at midnight. Continue to monitor on telemetry. 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 Details unclear as episode was not witnessed. With aortic stenosis as noted above. Bilateral carotid Dopplers with essentially normal carotids. Continue to monitor on telemetry. [facility] planned 09/11/17 Qualifiers: Syncope type: unspecified Qualified Code(s): R55 - Syncope and collapse (3) Chest pain Current Visit: Yes Status: Acute Assessment and plan: No known CAD. Presented after a syncopal episode with associated chest pain. Serial troponins negative. EKG without acute ST changes. Evaluated by cardiology who is recommending [facility] for further evaluation. NPO at midnight. Cont ASA Qualifiers: Chest pain type: other chest pain Qualified Code(s): R07.89 - Other chest pain; R07.8 - Other chest pain (4) HTN (hypertension) Current Visit: Yes Status: Chronic Assessment and plan: per hx. BP elevated, placed secondary to stress/anxiety. Continue home BP medication. Avoid severe/sudden drop in BP with possible severe aortic stenosis. Monitor BP and titrate PRN. BP improved on 09/10 review Qualifiers: Hypertension type: essential hypertension Qualified Code(s): I10 - Essential (primary) hypertension (5) DVT prophylaxis Current Visit: Yes Status: Acute Assessment and plan: lovenox - Time Spent With Patient Total time spent is greater than 50% in coordination of care (as documented) at patient's floor/unit and/or counseling patient: - Constitutional Vitals: Temp Pulse Resp BP Pulse Ox 98 F 77 16 147/77 96 09/10/17 11:05 09/10/17 11:05 09/10/17 11:05 09/10/17 11:05 09/10/17 11:05 General appearance: Present: cooperative, A&O X 3, pleasant, no acute distress, answers questions appropriately Internal Medicine: Result - Labs CBC & Chem 7: 09/09/17 03:10 09/09/17 03:10 - ABG Interpretation ABG results: PT/INR, D-dimer PT 11.2 Seconds (9.4-12.1) 09/08/17 13:08 Consult Discharge Plan - Plan Referrals: Yao Ruiz MD [Primary Care Provider] -
[2017-09-10] MEDS: amLODIPine 5 MG TABLET PO SCH (17:31)
[2017-09-11] MEDS: Valsartan 160 MG TABLET PO SCH (07:44)
[2017-09-11] MEDS: Aspirin 81 MG TAB.CHEW PO SCH (07:45)
[2017-09-11] MEDS: Multivit/Ca/Min/Fe/FA 1 TAB TABLET PO SCH (07:45)
[2017-09-11] MEDS: Cholecalciferol (D-3) 1,000 UNIT TABLET PO SCH (07:45)
[2017-09-11] MEDS: Furosemide 20 MG TABLET PO SCH (07:46)
[2017-09-11] MEDS: Lactobacillus 1 EACH CAP.SPRINK PO SCH (07:46)
[2017-09-11] MEDS: hydroCHLOROthiazide 25 MG TABLET PO SCH (07:46)
[2017-09-11] MEDS: Finasteride 5 MG TABLET PO SCH (07:46)
--- NOTE | 2017-09-11 08:41 | Pre-Sedation Evaluation ---
Pre-sedation evaluation - Pre-sedation checklist Date of procedure: 09/11/17 Procedure: LHC Recent Vitals: Last Vital Signs Temp 98 F 09/11/17 07:23 Pulse 74 09/11/17 07:23 Resp 15 09/11/17 07:23 BP 149/73 09/11/17 07:23 Pulse Ox 97 09/11/17 07:23 ASA Classification *see protocol: CLASS II-Mild systemic disease
[2017-09-11] MEDS ORDERED: *HR* Midazolam HCl 2 MG/2 ML VIAL ONE (11:12)
[2017-09-11] MEDS ORDERED: *HR* FentaNYL (PF) 100 MCG/2 ML VIAL ONE (11:12)
[2017-09-11] MEDS ORDERED: *HR* Heparin 10,000 UNIT/10 ML VIAL ONE (11:13)
[2017-09-11] MEDS ORDERED: ISOVUE-370 200 ML INFUS..BTL IV ONE (11:13)
[2017-09-11] MEDS ORDERED: 0.9 % Sodium Chloride 2,000 ML ONE (11:13)
[2017-09-11] MEDS ORDERED: Heparin 1,000 UNITS/500 mL 500 ML ONE (11:13)
--- NOTE | 2017-09-11 12:12 | Invasive Diagnostic Lab Proc ---
Name: Hank Taylor Date of Study: 09/11/2017 Date: 1930 Ht: 66.9in Medical Record#: [id number] Age: 86 Wt: 165.35lb Gender: Male BSA: 1.86 Order #: [id number] BMI: 25.95 Physicians Procedure Physician: Tobin Burr MD Referring MD: Referring MD: Staff Name Position Time In MartínezGisel RN Monitor 11:23 AM Brandon Vasques RN Monitor 11:23 AM Laisha Mcdonald RT (R) Scrub 11:23 AM Alis Hayes RN Systems Tester 11:23 AM Darling Napier RT (R) Scrub 11:29 AM Indications Indication Unstable Angina Procedures Performed Procedure CORONARY ARTERY ANGIO S&I Pre-Procedure Checklist Informed consent is complete signed and on chart. H&P is on chart. ID band is on and ID verified with patient. Patient NPO for procedure The procedure was described for the patient and questions were answered. ECG is on chart. Plan of Care Patient will tolerate the procedure without complications. Adequate level of comfort will be maintained. Hemodynamics will remain stable Patient will recover from procedure without complications. Respiratory function will be maintained. Cardiac rhythm will remain stable. Patient temperature will be maintained. Patient and/or family have verbalized understanding of the procedure. Patient Education Chief Complaint/Reason for Test: Cardiac Cath Developmental Category: Geriatric (65+ years) Developmentally Appropriate for Age: Yes Learning Barriers: None Education Needs: Procedure Education Method: Verbal Information Taught: Cardiac Cath Educational Evaluation: Able to repeat information Intravenous Access Time IV Size Location DC'd Fluid/Drip Rate Units RN 08:48 AM 18g 1 /" Patent On Arrival Allergies nitroglycerin Vital Signs Time BP (mmHg) HR (bpm) O2 Sat. RR (bpm) LOC 08:48 AM 149 / 73 74 97 % 15 5 = Fully awake and oriented or at pre-proc level 11:24 AM / % 5 = Fully awake and oriented or at pre-proc level 11:24 AM / % 5 = Fully awake and oriented or at pre-proc level 11:29 AM 183 / 88 70 97 % 11:33 AM 184 / 84 65 99 % 11:38 AM 161 / 75 67 99 % 11:43 AM 159 / 76 71 99 % 11:48 AM 151 / 70 69 99 % 11:53 AM 162 / 87 75 99 % Procedural Medications Time Medication Dose Units Method Given By 11:24 AM Oxygen 2 L/min nasal cannula Alis Hayes RN 11:34 AM Versed 1 mg Intravenous Alis Hayes RN 11:34 AM Fentanyl 50 mcg Intravenous Alis Hayes RN 11:36 AM Lidocaine 2% 10 ml Subcutaneous Tobin Burr MD 11:49 AM Heparin 1000 units Intravenous Alis Hayes RN ASA Classification: CLASS II- Mild systemic disease (i.e. well-controlled diabetes, hypertension, asthma, cigarette smoking) Justin Score Preprocedure Postprocedure Activity 2- Moves 4 extremities sustained head lift Activity 2- Moves 4 extremities sustained head lift Circulation 2- SBP +/= 20 points of pre-anesthetic level Circulation 2- SBP +/= 20 points of pre-anesthetic level Consciousness 2- Awake and alert oriented x 3 Consciousness 2- Awake and alert oriented x 3 O2 Saturation 2- Able to maintain O2 satruation of 92% on room air O2 Saturation 2- Able to maintain O2 satruation of 92% on room air Respiratory 2- Able to deep breathe and cough well Respiratory 2- Able to deep breathe and cough well Total Score 10 Total Score 10 Contrast Agent: Isovue Diagnostic Contrast: 52 ml Total Contrast: 52 ml Fluoro Dose: 334 mGy Procedure Log Time Note Enter By 11:21 AM Pt arrived to director of labor relations 2 at 11:21 cedwards 11:23 AM Gisel Soliz RN Position: Monitor Time in: 11:23 cedwards 11:23 AM Brandon Vasques RN Position: Monitor Time in: 11:23 cedwards 11:23 AM Laisha Mcdonald RT (R) Position: Scrub Time in: 11:23 cedwards 11:23 AM Alis Hayes RN Position: Systems Tester Time in: 11:23 cedwards 11:23 AM Patient charges- Angio tray pack, Navilyst 3mm J, Pulse Oximetry and ACIST tubing and transducer cedwards 11:24 AM Hair removed from procedure site in procedure lab using clippers. Bilateral groin prepped with Chloraprep by Laisha Mcdonald RT (R), then patient was draped. Skin intact. cedwards 11:24 AM Physican responded and notified patient is ready 11:24 cedwards 11:24 AM Physician arrived 11:24 cedwards 11:24 AM Meet and larry completed cedwards 11:24 AM Sign in performed according to hospital policy. cedwards 11:24 AM Procedure start 11:24 cedwards 11:24 AM Time: 11:24 Oxygen on at 2 L/min per nasal cannula by Alis Hayes RN cedwards 11:24 AM Time: 11:24 Patient comfortable and pain free: Yes cedwards 11:24 AM Time: 11:24LOC: 5 = Fully awake and oriented or at pre-proc level cedwards 11:25 AM Clinical Presentation: Unstable angina cedwards 11:25 AM CathStat 11:27 AM Vitals capture started with the following parameters, Patient=Adult, Interval=5 min, Initial Qmfsuotf=815 mmHg, Deflation Rate=5 mmHg, Cuff placed on Right Arm 11:28 AM Recorded ECG: HR=76 Condition=Condition 1 11:29 AM Darling Napier RT (R) Position: Scrub Time in: 11:29 cedwards 11:29 AM HR=70 bpm, LTHR=166/88 mmhg, SpO2=97.0 %, Comment=NSR 11:33 AM HR=65 bpm, RDDF=953/84 mmhg, SpO2=99.0 %, Comment=NSR 11:34 AM ASA Class CLASS II- Mild systemic disease (i.e. well-controlled diabetes, hypertension, asthma, cigarette smoking) cedwards 11:34 AM Time: 11:34 Versed 1 mg Intravenous Given by Alis Hayes RN cedwards 11:34 AM Time: 11:34 Fentanyl 50 mcg Intravenous Given by Alis Hayes RN cedwards 11:34 AM Pressure channel 1 zeroed. 11:36 AM Time out performed according to hospital policy cedwards 11:36 AM Time: 11:36 10 ml Lidocaine 2% to right groin Subcutaneous Given by Tobin Burr MD cedwards 11:36 AM Micro-Introducer Kit utilized for sheath placement cedwards 11:37 AM Access obtained by percutaneous puncture. 6Fr 10cm Terumo [place] sheath placed in right Femoral artery. [id number] cedwards 11:38 AM HR=67 bpm, ARDJ=249/75 mmhg, SpO2=99.0 %, Comment=NSR 11:39 AM 5Fr FR 4 catheter inserted over the wire [facility] cedwards 11:39 AM RCA angiography performed in multiple views. cedwards 11:39 AM 0.035 145cm Navilyst 3mmJ wire [id number] cedwards 11:40 AM Time: 11:24LOC: 5 = Fully awake and oriented or at pre-proc level cedwards 11:40 AM wire removed cedwards 11:40 AM Time: 11:24 Patient comfortable and pain free: Yes cedwards 11:40 AM RCA angiography performed in multiple views. cedwards 11:40 AM Recorded Pressure: Ao, HR=69, Condition=Condition 1 (Aorta) Ao 123/59/87 11:41 AM Catheter removed cedwards 11:41 AM 5Fr FL 4 catheter inserted over the wire [facility] cedwards 11:43 AM Catheter removed cedwards 11:43 AM 5Fr FL 3.5 catheter inserted over the wire [id number] cedwards 11:43 AM HR=71 bpm, TLMJ=981/76 mmhg, SpO2=99.0 %, Comment=NSR 11:48 AM Recorded Pressure: Ao, HR=67, Condition=Condition 1 (Aorta) Ao 121/53/82 11:48 AM LCA angiography performed in multiple views. cedwards 11:48 AM HR=69 bpm, RNWR=481/70 mmhg, SpO2=99.0 %, Comment=NSR 11:49 AM Time: 11:49 Heparin 1000 units Intravenous Given by Alis Hayes RN cedwards 11:49 AM Catheter removed cedwards 11:49 AM 5Fr Pigtail catheter inserted over the wire [facility] cedwards 11:50 AM Catheter removed cedwards 11:50 AM unable to cross cedwards 11:51 AM Bolus angiogram of right Femoral complete: 2 ml/sec for a total of 4 mls cedwards 11:51 AM Procedure completed at 11:51 cedwards 11:52 AM Did you address GLENDA flow and Dominance? Yes cedwards 11:52 AM Sign out completed: Radiation Dose 334.29 mGy Fluoro Time: 6.5 Isovue 370 - 200ml contrast 52.3 ml given by Tobin Burr MD. Complications: NoneCardiac Rehab Consult needed: NoConfirmed administered medications: Yes cedwards 11:53 AM Arterial sheath pulled, Angio-seal closure device used and was Successful [id number] S/N. cedwards 11:53 AM HR=75 bpm, ATUX=934/87 mmhg, SpO2=99.0 %, Comment=NSR 11:54 AM Estimated Blood Loss: minimal cedwards 11:54 AM Post ECG NSR cedwards 11:54 AM Post Blood Pressure 162/87 cedwards 11:54 AM Information taught Cardiac Cath cedwards 11:55 AM Education needs Plan of Care, Procedure, Disease Process, and Responsibilities of Patient in Care cedwards 11:55 AM Learning barriers :None cedwards 11:55 AM Education Methods Verbal cedwards 11:55 AM Education evaluation Able to repeat information cedwards 11:55 AM Site status No bleeding/hematoma - Rt Groin as reported by Darling Napier RT (R) at 11:55 cedwards 11:55 AM Opsite applied cedwards 11:56 AM Patient out of room: 11:56 cedwards 11:56 AM Family placed in consult room. cedwards 11:56 AM Complications: None cedwards 11:57 AM Fluoro Time: 6.5 cedwards 11:57 AM Isovue 370 - 200ml contrast [address] Burr. cedwards 11:57 AM Radiation Dose 334.29 mGy cedwards 12:00 PM Coronary Dominance: right cedwards 12:03 PM Report given to Penny GRAMAJO Pt taken to 3B Room #31. 12:02 cedwards Complications Complication None Hemodynamics Pressures Site Systolic/A Wave Diastolic/V Wave Mean AO 123 59 87 AO 121 53 82 Post Procedure Information Rhythm: NSR Post procedural instructions were given Closure Device Time Device Success/Fail 09/11/2017 11:53:00 AM Angio-Seal VIP Site Checks Time Location Status Staff Sheath In? Note 11:55 AM Rt Groin No bleeding/hematoma Darling Napier RT (R) Pulses Time Site Pre-Procedure Post-Procedure Note 09/11/2017 8:48:00 AM Bilateral radial 2+ 09/11/2017 8:48:00 AM Bilateral DP & PT 2+ Updated by Brandon Vasques RN on 09/11/2017 12:04:05 PM electronically signed on 09/11/2017 12:05:05 PM with status of Final
--- NOTE | 2017-09-11 14:35 | Internal Med Progress Note ---
Date of Encounter: 09/11/17 Time of Encounter: 14:33 - Assessment and plan (1) Aortic stenosis Current Visit: Yes Status: Chronic Assessment and plan: has known aortic stenosis. 09/09/17 TTE with moderate to severely calcified aortic valve leaflets (number of leaflets cannot be determined) and moderate aortic stenosis. Concerned that syncopal episode could be related to aortic stenosis. Evaluated by cardiology who is recommended [facility] for further characterization of stenosis severity. Continue to monitor on telemetry. 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 Details unclear as episode was not witnessed. With aortic stenosis as noted above. Bilateral carotid Dopplers with essentially normal carotids. Continue to monitor on telemetry. [facility] planned 09/11/17 Qualifiers: Syncope type: unspecified Qualified Code(s): R55 - Syncope and collapse (3) Chest pain Current Visit: Yes Status: Acute Assessment and plan: No known CAD. Presented after a syncopal episode with associated chest pain. Serial troponins negative. EKG without acute ST changes. Evaluated by cardiology who is recommending [facility] for further evaluation. Cont ASA Qualifiers: Chest pain type: other chest pain Qualified Code(s): R07.89 - Other chest pain; R07.8 - Other chest pain (4) HTN (hypertension) Current Visit: Yes Status: Chronic Assessment and plan: per hx. BP elevated, placed secondary to stress/anxiety. Continue home BP medication. Avoid severe/sudden drop in BP with possible severe aortic stenosis. Monitor BP and titrate PRN. BP remains mildly elevated on on 09/11 review; increase amlodipine. Monitor BP and titrate PRN Qualifiers: Hypertension type: essential hypertension Qualified Code(s): I10 - Essential (primary) hypertension (5) DVT prophylaxis Current Visit: Yes Status: Acute Assessment and plan: SCD - Time Spent With Patient Total time spent is greater than 50% in coordination of care (as documented) at patient's floor/unit and/or counseling patient: - Subjective Interval history: Seen and examined at bedside; says he feels well and would like to go home today if possible. Slept a little better last night. No chest pain or shortness of breath. - Constitutional Vitals: Temp Pulse Resp BP Pulse Ox 97.8 F 72 12 156/69 95 09/11/17 12:15 09/11/17 13:30 09/11/17 12:15 09/11/17 13:30 09/11/17 13:30 General appearance: Present: cooperative, A&O X 3, pleasant, no acute distress, answers questions appropriately - Head Head exam: Present: atraumatic, normocephalic - Eye Eye exam: Present: PERRL, conjuntiva pink, sclera anicteric Pupils: Present: PERRL - Neck Neck exam general surgery: Present: supple, trachea midline. Absent: lymphadenopathy - Respiratory Respiratory exam: Present: CTAB. Absent: accessory muscle use, rales, rhonchi, wheezes - Cardiovascular Cardiovascular exam: Present: RRR, +S1, +S2, systolic murmur. Absent: diastolic murmur, gallop, rubs - GI/Abdominal GI/Abdominal exam: Present: normal bowel sounds, soft, no peritoneal signs. Absent: distended, tenderness - Extremities Exam Extremities exam: Present: warm, radial pulses palpable and symmetrical. Absent : calf tenderness, cyanotic, pedal edema - Neurological Exam Neurological exam: Present: CN II-XII intact, oriented X3, no focal deficits. Absent: pronater drift, facial droop, speech deficit - Skin Skin exam: Present: dry, intact Internal Medicine: Result - Labs CBC & Chem 7: 09/09/17 03:10 09/09/17 03:10 - ABG Interpretation ABG results: PT/INR, D-dimer PT 11.2 Seconds (9.4-12.1) 09/08/17 13:08 Consult Discharge Plan - Plan Referrals: aYo Ruiz MD [Primary Care Provider] -
--- NOTE | 2017-09-11 16:02 | Event Note ---
Date of Encounter: 09/11/17 Time of Encounter: 15:48 - Cardiology Event Note C completed and showed normal coronaries. Aortic valve was not crossed. To further evaluate severity of aortic stenosis we will proceed with HUMBERTO tomorrow. HMUBERTO indication, risks, adeverse events discussed. Patient agrees to proceed.
[2017-09-11] MEDS: amLODIPine 5 MG TABLET PO SCH (17:04)
[2017-09-12] MEDS ORDERED: Lidocaine Viscous Oral Soln 15 ML SOLUTION MM PRN (09:47)
[2017-09-12] MEDS ORDERED: *HR* Midazolam HCl 2 MG/2 ML VIAL IVP PRN (09:48)
[2017-09-12] MEDS ORDERED: 0.9 % Sodium Chloride 500 ML IVC ONE (09:48)
[2017-09-12] MEDS ORDERED: Tetracaine/Benzocaine/Butamben 200MG/SPRAY (100SPY/BOT) MM ONE (09:49)
[2017-09-12] MEDS ORDERED: *HR* Midazolam HCl 5 MG/5 ML VIAL IVP ONE (10:28)
[2017-09-12] MEDS: *HR* FentaNYL (PF) 100 MCG/2 ML VIAL IVP PRN ×3 (10:45→10:55)
[2017-09-12] MEDS: *HR* Midazolam HCl 5 MG/5 ML VIAL IVP ONE ×2 (10:50→10:55)
--- NOTE | 2017-09-12 11:42 | Event Note ---
Date of Encounter: 09/12/17 Time of Encounter: 11:36 - Cardiology Event Note HUMBERTO completed. Discussed with Dr. Marin. Aortic valve with moderate . Full report pending. LHC completed yesterday showed normal coronaries. Telemetry during hospital stay showed NSR. AVG HR 75 bpm. No VT, bradycardia, or pauses seen. No further cardiac testing at this time. Out-pt f/u will be scheduled for monitoring of . Recommend patient keeps b/p log. Instructed to stay hydrated. No cardiac findings to account for syncope. Cardiology will sign off. Call with questions.
[2017-09-12] MEDS: Multivit/Ca/Min/Fe/FA 1 TAB TABLET PO SCH (12:35)
[2017-09-12] MEDS: Aspirin 81 MG TAB.CHEW PO SCH (12:35)
[2017-09-12] MEDS: Valsartan 160 MG TABLET PO SCH (12:35)
[2017-09-12] MEDS: amLODIPine 5 MG TABLET PO SCH (12:35)
[2017-09-12] MEDS: Lactobacillus 1 EACH CAP.SPRINK PO SCH (12:35)
[2017-09-12] MEDS: Cholecalciferol (D-3) 1,000 UNIT TABLET PO SCH (12:35)
[2017-09-12] MEDS: Finasteride 5 MG TABLET PO SCH (12:35)
[2017-09-12] MEDS: Furosemide 20 MG TABLET PO SCH (12:35)
[2017-09-12] MEDS: hydroCHLOROthiazide 25 MG TABLET PO SCH (12:35)
[2017-09-12 13:02] VITALS: BP 150/56
[2017-09-12 13:23] LABS: Basophils % 0.5 %; Eosinophils # 0.4 K/mcL (0.0-0.6); Eosinophils % 5.7 %; Hematocrit 41.5 % (37.5-50.1); Hemoglobin 13.5 g/dL (12.9-16.9); Immature Granulocytes % 0.4 % (0-4); Lymphocytes # 1.1 K/mcL (0.6-4.6); Lymphocytes % 15.3 %; Mean Corpuscular HGB Conc 32.5 g/dL (31.6-35.5); Mean Corpuscular Volume 89.2 fL (83.0-100.0); Mean Platelet Volume 10.3 fL (9.4-12.4); Monocytes # 0.5 K/mcL (0.0-1.3); Monocytes % 7.2 %; Neutrophils # 5.2 K/mcL (1.6-8.9); Platelet Count 175 K/mcL (140-400); Red Blood Count 4.65 M/mcL (4.19-5.50); Red Cell Distribution Width 14.6 % (11.5-14.5); Segmented Neutrophils % 70.9 %
[2017-09-12 13:46] LABS: BUN/Creatinine Ratio 24 (6-26); Blood Urea Nitrogen 19 mg/dL (8-23); Carbon Dioxide 33 mEq/L (23-29); Chloride 100 mEq/L (98-107); Glucose 149 mg/dL (70-105); Osmolality,Calculated 289 (280-300); Potassium 3.8 mEq/L (3.5-5.1); Sodium 137 mEq/L (136-145); eGFR For African Americans > 60 (> 60); eGFR For Non-African Americans > 60 (> 60)
--- NOTE | 2017-09-12 14:13 | Discharge Summary ---
- NOTES TO OUTPATIENT PROVIDER Notes to Outpatient Provider: Outpatient follow up with cardiology monitor , cardiology recommending patient keep BP log. 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 Taylor is a 86 year old male past Josue history of hypertension and aortic stenosis who presented to the [facility] 1 day history of chest pain and syncopal episode. He had an unwitnessed episode which he "blacked out"unsure of how long the episode lasted. He has been also experiencing intermittent episodes of chest pain. Carotid Dopplers were essentially normal TTE 09/09/17 with moderate to severely calcified aortic valve leaflets. There was concern syncopal episode related to aortic stenosis. Cardiology was consulted. Patient underwent a cardiac catheterization to evaluate chest pain and unexplained syncope LHC showed normal coronaries aortic valve was not crossed recommending HUMBERTO which was completed-aortic valve with moderate ACS. Cardiology recommending outpatient follow-up to monitor . Recommending patient to keep blood pressure log and to stay hydrated. Patient will follow- up with cardiology as outpatient. Patient is hemodynamically stable at this time denies any chest pain or shortness of breath. 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 Patient is ready for discharge. Discharge discussed with: patient, family - Time Spent with Patient Total time spent providing and/or coordinating discharge services: - Discharge Medications Prescriptions: amLODIPine [Norvasc] 10 mg PO DAILY #30 tablet Home Medications: Amlodipine Besylate 5 mg PO QPM 09/08/17 [History] Aspirin 81 mg PO DAILY 09/08/17 [History] Calcium Carbonate [Calcium] 500 mg PO DAILY 09/08/17 [History] Cholecalciferol (Vitamin D3) [Vitamin D3] 1,000 unit PO DAILY 09/08/17 [History] Dutasteride 0.5 mg PO DAILY 09/08/17 [History] Etanercept [Enbrel] 50 mg IJ Q10D 09/08/17 [History] Furosemide [Lasix] 20 mg PO DAILY 09/08/17 [History] Ibuprofen [Advil] 200 mg PO Q6H PRN 09/08/17 [History] Lactobacillus Acidophilus [Acidophilus Probiotic] 1 mg PO DAILY 09/08/17 [ History] Mv-Mn/FA/Vit K/Lycop/Lut/Coq10 [Daily Multivitamin Capsule] 1 tab PO DAILY 09/08 [History] Potassium Chloride [Klor-Con Sprinkle] 10 meq PO DAILY 09/08/17 [History] amLODIPine [Norvasc] 10 mg PO DAILY #30 tablet 09/12/17 [Rx] Allergies/Adverse Reactions: 3 Allergy/AdvReac Type Severity Reaction Status Date / Time nitroglycerin Allergy PASSES OUT Verified 09/08/17 14:26 Date of admission: 09/12/17 09:20 Primary care physician: Yao Ruiz MD Discharging clinician: Grace Palacio Anticipated date of discharge: 09/12/17 - Constitutional Vitals: Temp Pulse Resp BP Pulse Ox 97.8 F 71 14 150/56 93 09/12/17 10:14 09/12/17 12:45 09/12/17 12:45 09/12/17 12:45 09/12/17 12:45 General appearance: Present: cooperative, A&O X 3, pleasant, no acute distress, answers questions appropriately - Head Head exam: Present: atraumatic, normocephalic - Eye Eye exam: Present: PERRL, conjuntiva pink, sclera anicteric Pupils: Present: PERRL - Neck Neck exam general surgery: Present: supple, trachea midline. Absent: lymphadenopathy - Respiratory Respiratory exam: Present: CTAB. Absent: accessory muscle use, rales, rhonchi, wheezes - Cardiovascular Cardiovascular exam: Present: RRR, +S1, +S2. Absent: diastolic murmur, gallop, rubs, systolic murmur - GI/Abdominal GI/Abdominal exam: Present: normal bowel sounds, soft, no peritoneal signs. Absent: distended, tenderness - Extremities Exam Extremities exam: Present: warm, radial pulses palpable and symmetrical. Absent : calf tenderness, cyanotic, pedal edema - Neurological Exam Neurological exam: Present: CN II-XII intact, oriented X3, no focal deficits. Absent: pronater drift, facial droop, speech deficit - Skin Skin exam: Present: dry, intact - Patient Status Disposition: Home, Self-Care Condition: Good Functional capacity at discharge: independent ambulation Overall status at discharge: patient is back to baseline - Discharge Instructions Instructions: Amlodipine (By mouth), Chest Pain (DC), Transesophageal Echocardiogram (DC), Transesophageal Echocardiogram (GEN), Aortic Stenosis (DC) , Aortic Stenosis (GEN), Syncope (DC) Follow Up With: [facility] [Provider Group] (The office will call you with a follow up appt.) Yao Ruiz MD [Primary Care Provider] - 10/04/17 2:30 pm Additional Instructions: RISK FACTORS: STOP SMOKING: If you smoke, STOP. Smoking or tobacco use significantly increases your risk of heart disease because nicotine causes the arteries to narrow or constrict. It also causes fats to stick to the artery. Your chances of having a heart attack are greatly increased if you continue to smoke. For more information, call the education line for smoking cessation 4-593-GDICLKW EAT A LOW FAT/CHOLESTEROL/SODIUM DIET: This diet may help reduce your chances of having a heart attack. LIFTING: Avoid lifting anything more than 10 pounds for 5-7 days Prior to straining, laughing, sneezing and/or coughing, apply manual pressure directly over insertion site. ACTIVITY: You may walk or climb stairs as tolerated You can resume sexual activity as tolerated In general, you are encouraged to engage in a minimum of 30 minutes or more of moderate intensity physical activity, such as brisk walking, daily or at least 3 -4 times weekly BATHING Do not submerge the site into water (bath tub, hot tub, swimming pool) for 1 week. This can be a source for infection into the blood stream. You may shower after 24 hours SITE CARE: After 24 hours, you may remove the dressing and leave the site open to air. Keep the site clean and dry. Clean gently and pat dry. You can expect bruising and tenderness that gradually resolve within a week or two. Return to work as instructed per your physician Resume driving as instructed per physician Keep all scheduled follow up appointments Resume medications as instructed IMPORTANT: If prescribed a Platelet Aggregation Inhibitor such as, Plavix, Brilinta or Effient: Duration of therapy is minimum one year These medications are often used in combination with Aspirin in prevention of future heart attacks Never discontinue unless consult with your Fermenting Cellar Dropper STROKE (CVA) Risk factors for a stroke are: Age, cigarette smoking, diabetes, excessive alcohol consumption, family history, high blood pressure, overweight, physical inactivity, prior stroke, heart attack, diagnosis of carotid artery stenosis or other artery disease. Warning signs: Sudden numbness or weakness of the face, arm or leg; especially on one side of the body, sudden confusion, trouble speaking or understanding, sudden trouble seeing in one or both eyes, sudden trouble walking, dizziness, loss of balance or coordination, sudden severe headache with no cause. Call 911 or go to the Emergency Room. CONGESTIVE HEART FAILURE: If you have been diagnosed with Congestive Heart Failure (CHF) and your symptoms return, make an appointment with your physician Weigh yourself daily. Notify your physician if you have a weight gain of two or more pounds in one day or five or more pounds in one week. If you experience any difficulty breathing, please call 911 BLEEDING: Although the risk of bleeding is minimal, it can happen. If you have any bleeding from the site, apply firm pressure above the puncture site for 10-15 minutes. If the bleeding does not stop, continue manual pressure and call 911 Contact your physician if: You develop a fever greater than 101 degrees Fahrenheit Your site becomes reddened or has any drainage You have an increase in pain or burning at the site or if a large knot forms at the site. If you experience chest pain, shortness of breath, dizziness, or extreme tiredness, stop the activity and rest. Please notify your physicians office if you experience any of these symptoms and they are not relieved by rest please call 911!
== END 2017-09-12 15:05 | disposition home or self-care (01) | DRG 287 ==
LOC: 3BNU 12:45 → EMEROO 12:45 → 3BNU 15:53
PROVIDERS: ADMIT Nurse Practitioner Acute Care; ATTEND Family Medicine